=== PATIENT | male | born 1965 | race Caucasian/White ===

== ENCOUNTER 2017-01-23 20:20 | Emergency (ER) | payer SELFPAY ==
--- NOTE | 2017-01-23 20:35 | NUR ---
PT CALLED TO TRIAGE, NO RESPONSE
--- NOTE | 2017-01-23 20:40 | NUR ---
PT CALLED TO TRIAGE, NO RESPONSE
--- NOTE | 2017-01-23 20:45 | NUR ---
PT CALLED TO TRIAGE, NO RESPONSE
== END 2017-01-23 20:45 | disposition left against medical advice (07) ==
LOC: ER 20:27
DX: Z53.21 Procedure and treatment not carried out due to patient leaving prior to being seen by health care provider (principal)